=== PATIENT | male | born 1955 | race Caucasian/White ===

== ENCOUNTER 2019-06-18 08:31 | Day surgery (SDC) | payer OTHER, MEDICARE ==
[2019-06-18] MEDS ORDERED: Midazolam 1 MG/ML 2 ML SDV ONE (08:43)
[2019-06-18] MEDS ORDERED: Propofol 200 MG/20 ML SDV ONE (08:43)
[2019-06-18] MEDS ORDERED: Sodium Chloride 0.9% 10 ML Syringe FLUSH PRN (09:00)
[2019-06-18] MEDS ORDERED: Lactated Ringers 1,000 ML IV SCH (09:00)
[2019-06-18] MEDS ORDERED: EPINEPHrine 1:10,000 1 MG/10 ML Syringe ONE (09:10)
[2019-06-18 09:37] LABS: ANION GAP 15.9 mmol/L (5-15); CHLORIDE,CL 94 mmol/L (98-115); SODIUM,NA 131 mmol/L (136-145)
[2019-06-18] MEDS ORDERED: Propofol 200 MG/20 ML SDV IV ONE (10:03)
[2019-06-18] MEDS ORDERED: Midazolam 1 MG/ML 2 ML SDV IV ONE (10:03)
--- NOTE | 2019-06-18 11:01 | PCM.OPNOTE ---
- General Post-Op/Procedure Note Date of Surgery/Procedure: 06/18/19 Operative Procedure(s): Colonoscopy, polypectomy 2 and biopsies of abnormal pseudopolyp area at 60 cm. Anesthesia Technique: Moderate Sedation Primary Surgeon: Gautam Mederos Complications: None Condition: Good Free Text/Narrative:: INFORMED CONSENT: Patient is here today for elective colonoscopy. All aspects of this procedure have been discussed with the patient. All possible complications also, including possibility of perforation, infection, pain, bleeding and unknown complications. In the event of perforation patient may need to have abdominal exploration, colon resection, colostomy and even was discussed. Anesthetic complications were handled by anesthesia department. The patient understands fully well. Patient did not have any further questions for me at the end of my interview. The patient wishes for me to proceed. PREOPERATIVE DIAGNOSIS/INDICATIONS: [The patient previously had a colonoscopy at the clinic. Multiple polyps were found and removed. An abnormal area was discovered at 60 cm. We were unable to remove this polyp completely the clinic and therefore he is being admitted to the hospital to have the procedure repeated on the general anesthesia.] POSTOPERATIVE DIAGNOSIS: [The abnormal polyp at the 60 cm was actually a pseudopolyp. Multiple biopsies were taken from this polyp. Additional polyps were identified at 38 cm and at the hepatic flexure. These were removed using hot biopsy forceps.] INSTRUMENT USED: Olympus videocolonoscope. ASA CLASSIFICATION: [2] ANESTHESIA: Continuous EKG, oximetry and intermittent blood pressure and respiratory monitoring were performed throughout the procedure. IV Versed and Fentanyl were administered. PROCEDURE PERFORMED: Colonoscopy POSITIONS OF PATIENT: Left lateral. RECTUM: Normal. SIGMOID COLON: Normal. DESCENDING COLON: A pseudopolyp was identified at 60 cm. Multiple biopsies were taken from this pseudopolyp. The second polyp was identified at 30 cm and removed using a hot biopsy forceps. SPLENIC FLEXURE: Normal. TRANSVERSE COLON: Normal. HEPATIC FLEXURE: A small polyp was identified in this area and removed using a hot biopsy forceps. ASCENDING COLON: Normal. CECUM: Normal. ILEOCECAL VALVE: Normal. BIOPSY: None. TOLERANCE: Excellent. COMPLICATIONS: None.
== END 2019-06-18 11:45 | disposition home or self-care (01) ==
LOC: KA.SDS 08:31
PROVIDERS: ATTEND Family Medicine
DX: D12.3 Benign neoplasm of transverse colon (principal); K63.5 Polyp of colon; K63.89 Other specified diseases of intestine; I10 Essential (primary) hypertension; F17.210 Nicotine dependence, cigarettes, uncomplicated; Z86.010 Personal history of colon polyps; Z79.82 Long term (current) use of aspirin; Z79.899 Other long term (current) drug therapy
CPT/HCPCS: 00811; 80053; J2250; J2704; J7120

== ENCOUNTER 2023-01-30 07:35 | Day surgery (SDC) | payer OTHER, MEDICARE ==
[2023-01-30] MEDS ORDERED: diphenhydrAMINE 50 MG/ML SDV IV ONE (07:36)
[2023-01-30] MEDS ORDERED: Propofol 200 MG/20 ML SDV IV ONE (07:36)
[2023-01-30] MEDS ORDERED: Sodium Chloride 0.9% 10 ML Syringe FLUSH PRN (08:00)
[2023-01-30] MEDS ORDERED: Lactated Ringers 1,000 ML IV SCH (08:00)
[2023-01-30] MEDS ORDERED: Propofol 200 MG/20 ML SDV ONE ×3 (09:30→10:57)
[2023-01-30] MEDS ORDERED: Midazolam 1 MG/ML 2 ML SDV ONE (09:30)
[2023-01-30] MEDS ORDERED: Lactated Ringers 1,000 ML ONE (10:43)
== END 2023-01-30 13:15 | disposition home or self-care (01) ==
LOC: KA.SDS 07:35
PROVIDERS: ATTEND Family Medicine
DX: D12.2 Benign neoplasm of ascending colon (principal); D12.0 Benign neoplasm of cecum; D12.4 Benign neoplasm of descending colon; D12.5 Benign neoplasm of sigmoid colon; D12.3 Benign neoplasm of transverse colon; K62.1 Rectal polyp; K57.30 Diverticulosis of large intestine without perforation or abscess without bleeding; R42 Dizziness and giddiness; R53.83 Other fatigue; R12 Heartburn; Z86.010 Personal history of colon polyps
CPT/HCPCS: 36415; 84132; J1200; J2250; J2704; J7120

== ENCOUNTER 2024-02-26 07:22 | Day surgery (SDC) | payer OTHER, MEDICARE ==
[2024-02-26] MEDS ORDERED: Propofol 200 MG/20 ML SDV IV ONE (07:23)
[2024-02-26] MEDS: Lactated Ringers 1,000 ML IV SCH (07:36)
[2024-02-26] MEDS ORDERED: Sodium Chloride 0.9% 10 ML Syringe FLUSH PRN (08:00)
[2024-02-26] MEDS ORDERED: Propofol 200 MG/20 ML SDV ONE ×2 (09:15→09:43)
== END 2024-02-26 11:58 | disposition home or self-care (01) ==
LOC: KA.SDS 07:22
PROVIDERS: ATTEND Family Medicine
DX: Z12.11 Encounter for screening for malignant neoplasm of colon (principal); K57.30 Diverticulosis of large intestine without perforation or abscess without bleeding; D12.2 Benign neoplasm of ascending colon; D12.3 Benign neoplasm of transverse colon; D12.4 Benign neoplasm of descending colon; K62.1 Rectal polyp; K64.8 Other hemorrhoids; I73.9 Peripheral vascular disease, unspecified; I65.23 Occlusion and stenosis of bilateral carotid arteries; I25.118 Atherosclerotic heart disease of native coronary artery with other forms of angina pectoris; I67.82 Cerebral ischemia; I10 Essential (primary) hypertension; K21.9 Gastro-esophageal reflux disease without esophagitis; R80.9 Proteinuria, unspecified; E87.1 Hypo-osmolality and hyponatremia; E87.5 Hyperkalemia; D64.9 Anemia, unspecified; E66.3 Overweight; G56.03 Carpal tunnel syndrome, bilateral upper limbs; F10.10 Alcohol abuse, uncomplicated; N52.9 Male erectile dysfunction, unspecified; J30.9 Allergic rhinitis, unspecified; H91.93 Unspecified hearing loss, bilateral; L30.9 Dermatitis, unspecified; L29.9 Pruritus, unspecified; F17.210 Nicotine dependence, cigarettes, uncomplicated; Z68.27 Body mass index [BMI] 27.0-27.9, adult; Z79.82 Long term (current) use of aspirin; Z79.899 Other long term (current) drug therapy; Z91.09 Other allergy status, other than to drugs and biological substances; Z98.890 Other specified postprocedural states; Z86.010 Personal history of colon polyps
CPT/HCPCS: 00811; J2704; J3490; J7120